=== PATIENT | female | born 1985 | race Caucasian/White ===

== ENCOUNTER → 2019-03-15 | Outpatient (CLI) | payer OTHER ==
--- NOTE | 2019-03-15 13:41 | RAD ---
EXAM: Right breast ultrasound. HISTORY: Right breast pain superiorly. Palpable focus medially. COMPARISON: None. FINDINGS: Sonographic evaluation of the right breast was performed at the sites of clinical concern. At the palpable focus at the 3-4:00 position, no abnormality is identified. Only normal parenchyma is seen. In the region of tenderness superiorly, no abnormality is identified. Only normal parenchyma is seen. An underlying implant appears intact by ultrasound. IMPRESSION: 1. BI-RADS Category 1: Negative. 2. Recommend ongoing clinical follow-up of tenderness and palpable foci. These negative results should not delay ongoing management of a clinically suspicious lesion. 3. Begin screening mammography at age 40 or as otherwise indicated. Electronically signed by: Shemar Mckinney MD (03/15/2019 1:39 PM) [facility]
== END | disposition home or self-care (01) ==
LOC: US 13:01
PROVIDERS: ATTEND Obstetrics & Gynecology
DX: N64.4 Mastodynia (principal); N63.10 Unspecified lump in the right breast, unspecified quadrant
CPT/HCPCS: 76641

== ENCOUNTER → 2019-07-10 | Outpatient (CLI) | payer OTHER ==
--- NOTE | 2019-07-11 12:31 | RAD ---
Examination: FOOT BILAT 3V History: Heel pain, lower back pain Comparison/Correlation: None Findings: Weightbearing images of the feet bilaterally were obtained. Imaging was performed in the AP, oblique, and lateral projections. Joint spaces are normal. No acute fracture or bone destruction. Soft tissues unremarkable. No definite or significant degenerative change. Plantar arches are symmetric and adequate. No calcaneal spurs are identified. Morphology of the calcaneus bilaterally is symmetric and unremarkable. Impression: No suspicious process. Electronically signed by: Jasiel Curry MD (07/11/2019 12:28 PM) [id number]
== END | disposition home or self-care (01) ==
LOC: DXRAD 18:46
PROVIDERS: ATTEND Podiatrist Foot & Ankle Surgery
DX: M79.671 Pain in right foot (principal); M79.672 Pain in left foot; M54.5 Low back pain
CPT/HCPCS: 73630